=== PATIENT | female | born 1955 | race Caucasian/White ===

== ENCOUNTER → 2017-02-09 | Outpatient (CLI) | payer OTHER ==
[~2017-02-09] MED LIST: ASCO500T3 PO; B-COTAB18 PO; CALCCHW57 PO; CHOL100010 PO; COCO1OIL2 PO; COEN100C11 PO; GLUC1TAB22 PO; LORA-741 PO; MULT-506 PO; OMEGCAP2 PO; THYR90TA PO; VITA400C15 PO; ZINC1TAB PO; ZOLP10TA PO
[2017-02-09 12:24] LABS: BASO % 0.3 %; BASO ABS # 0.02 K/uL (0-0.2); COMPLETE YES; EOS % 3.3 %; HEMATOCRIT 44.1 % (37-47); LYMPH % 34.5 %; MEAN CELL VOLUME 92.6 fL (80-100); MEAN CORPUSCULAR HEMOGLOBIN 30.3 pg (25-34); MEAN CORPUSCULAR HGB CONC 32.7 g/dl (32-36); MEAN PLATELET VOLUME 11.3 fL (7.4-10.4); MONO % 9.3 %; NEUT % 52.6 %; PLATELET COUNT 270 K/uL (130-400); RED BLOOD COUNT 4.76 M/uL (4.2-5.4); WHITE BLOOD COUNT 5.79 K/uL (4.8-10.8)
[2017-02-09 14:40] LABS: ALT/SGPT 25 U/L (12-78); AST/SGOT 16 U/L (15-37); BLOOD UREA NITROGEN 16 mg/dl (7-18); BUN/CREATININE RATIO 19.3 (10-20); CALCIUM 9.4 mg/dl (8.5-10.1); CARBON DIOXIDE 29 mmol/L (21-32); CHLORIDE 107 mmol/L (98-107); CHOLESTEROL 178 mg/dl (0-200); CREATININE 0.81 mg/dl (0.60-1.20); GLUCOSE 84 mg/dl (70-99); POTASSIUM 4.3 mmol/L (3.5-5.1); SODIUM 142 mmol/L (136-145)
[2017-02-09 14:49] LABS: ALB/GLOB RATIO 1.1 (0.9-2); ALKALINE PHOSPHATASE 103 U/L (45-117); CHOLESTEROL/HDL RATIO 2.7; HDL CHOLESTEROL 65 mg/dl; LDL CHOLESTEROL CALCULATED 92 mg/dl; THYROID STIMULATING HORMONE 0.586 uIu/ml (0.300-4.500); TRIGLYCERIDES 105 mg/dl (0-150); VERY LOW DENSITY LIPOPROT CALC 21 mg/dl
== END | disposition home or self-care (01) ==
LOC: C.LABBFT 10:51
PROVIDERS: ATTEND Physician Assistant Medical
DX: E03.9 Hypothyroidism, unspecified (principal); Z13.6 Encounter for screening for cardiovascular disorders; R79.9 Abnormal finding of blood chemistry, unspecified; E78.5 Hyperlipidemia, unspecified

== ENCOUNTER → 2017-07-03 | Outpatient (CLI) | payer OTHER ==
--- NOTE | 2017-07-06 12:34 | MAMMOGRAPHY REPORT ---
BILATERAL DIGITAL SCREENING MAMMOGRAM WITH CAD: 07/03/2017 CLINICAL HISTORY: Routine screening. Patient has no complaints. TECHNIQUE: Current study was also evaluated with a Computer Aided Detection (CAD) system. Bilateral CC and MLO views were obtained. COMPARISON: Comparison is made to exams dated: 07/02/2016 mammogram, 06/07/2013 mammogram, 06/23/2012 ma mmogram, 05/28/2012 mammogram - [facility], 11/19/2007, and 04/22/2007. BREAST COMPOSITION: There are scattered areas of fibroglandular density in both breasts. FINDINGS: No suspicious masses, calcifications, or areas of architectural distortion are noted in ei ther breast. There has been no significant interval change compared to prior exams. IMPRESSION: ACR BI-RADS CATEGORY 1: NEGATIVE There is no mammographic evidence of malignancy. A 1 year screening mammogram is recommended. The pa tient will receive written notification of the results. Approximately 10% of breast cancers are not detected with mammography. A negative mammographic report should not delay biopsy if a clinically suggestive mass is present. Crista Daley M.D. ah/:07/03/2017 15:45:58 [employer]: Glenna Patel RT(R)(M)(BD), [facility] letter sent: Normal 1/2 BI-RADS Code: ACR BI-RADS Category 1: Negative
== END | disposition home or self-care (01) ==
LOC: C.MAMM 15:28
PROVIDERS: ATTEND Internal Medicine
DX: Z12.31 Encounter for screening mammogram for malignant neoplasm of breast (principal)

== ENCOUNTER 2017-10-23 12:24 | Emergency (ER) | payer OTHER ==
[~2017-10-23] VITALS: Ht 167.6 cm; Wt 88.2 kg
[2017-10-23 12:35] VITALS: TEMP 36.6; Ht 167.6 cm; Wt 88.2 kg
[2017-10-23] MEDS ORDERED: ZOLP5TAB6 PO (12:46)
[2017-10-23] MEDS ORDERED: IBUPROFEN 600 MG TAB PO STA (13:23)
--- NOTE | 2017-10-23 13:59 | DIAGNOSTIC IMAGING REPORT ---
R SHOULDER MIN 2 VIEWS ROUTINE CLINICAL HISTORY: Right shoulder pain status post trauma COMPARISON: None. DISCUSSION: No fractures or dislocations are visualized. There are mild degenerative changes present within the AC joint. IMPRESSION: No fractures or dislocations identified. Electronically signed by: Kory Desai M.D. 10/23/2017 1:58 PM Dictated Date/Time: 10/23/2017 1:57 PM
--- NOTE | 2017-10-23 14:09 | DIAGNOSTIC IMAGING REPORT ---
PA CHEST WITH LEFT-SIDED RIB SERIES CLINICAL HISTORY: Fall with left-sided chest wall pain. FINDINGS: A PA chest radiograph with 4 additional views may left-sided rib series is compared to study dated 01/09/2014. The cardiomediastinal silhouette is unremarkable. Chronic interstitial thickening is similar to previous. There is mild bibasilar atelectasis. No airspace consolidation or large pleural effusion is identified. No pneumothorax is seen. The skeletal structures are osteopenic. There is a nondistracted left posterolateral sixth rib fracture. No additional rib fracture is clearly identified on the rib series there is The remainder of the bony thorax is grossly intact. Cholecystectomy clips are noted. IMPRESSION: 1. The lungs are clear noting bibasilar atelectasis. 2. There is a nondistracted left posterior lateral 6th rib fracture seen on the rib series. 3. No additional rib fracture is clearly identified. Electronically signed by: Abhilash Daniels M.D. 10/23/2017 2:08 PM Dictated Date/Time: 10/23/2017 2:05 PM
--- NOTE | 2017-10-23 14:34 | EMERGENCY ROOM VISIT NOTE ---
ED Visit Note First contact with patient: 12:55 CHIEF COMPLAINT: Right shoulder and left rib pain after a fall HISTORY OF PRESENT ILLNESS: Patient is a [id number] 62-year-old white female who presents to the emergency department for evaluation of left rib pain and right shoulder pain. Patient actually suffered 2 falls, first she slipped and fell on ice last evening, landing flat on her back. The second was about an hour and a half ago, when she fell off the side of her basement steps. She reports that she fell roughly 5 feet down to the basement floor, landing on her right shoulder. Initially the right side of her neck and shoulder were stiff and sore, but this has improved slightly. She complains primarily of left lower rib pain. It is worse with any attempts at movement, laughing, deep breathing or coughing. She did not take any medication for discomfort. She rates her pain a 2/10. REVIEW OF SYSTEMS: Review of systems as per HPI. All other systems reviewed were negative. 10 systems reviewed. PMH: Electronic medical records are reviewed and summarized as above/below. See Problem List. SOCIAL HISTORY: Patient lives at home with her spouse. Smoker. PHYSICAL EXAM: Vital Signs: Reviewed Nurse's notes. GENERAL: Patient is an uncomfortable-appearing 62-year-old white female who is standing at the bedside, holding her left ribs. Neck: The neck is supple and there is no pain to palpation over the posterior cervical spine and no obvious step-offs or deformities. There is no JVD or tracheal deviation. Chest: There are no signs of deformities, contusions or abrasions to the anterior chest wall. There is no obvious crepitus or paradoxical chest rise. The left posterior lateral ribs are tender to palpation. There is no obvious flail segment. Heart: Regular rate, and regular rhythm. Lungs: Breath sounds equal and clear to auscultation without wheezes, rales, or rhonchi heard. Abdomen: Soft, completely nontender, nondistended, with good bowel sounds. There is no sign of trauma such as contusions, abrasions or penetrations. There are no palpable pulsatile masses or hepatosplenomegaly. There is no guarding, rigidity, or rebound noted. Extremities: No obvious trauma, deformities, contusions, or edema. There are easily palpable peripheral pulses. The shoulder is nontender to palpation, range of motion is full. She does have some left-sided trapezius and paraspinous muscle tenderness, without spasm. Neuro: The patient is awake and alert and easily able to follow commands. Muscle strength is 5 out of 5 in all 4 extremities. Otherwise, neuro exam is unremarkable. Back: The patient was rolled off the long spine board as a unit. The entire thoracic, lumbar, and sacral spine were palpated. No discomfort over the thoracic spine and lumbar spine. There are no obvious step-offs or deformities noted. There are no obvious signs of trauma such as contusions abrasions penetrations noted to the back. EMERGENCY DEPARTMENT COURSE: The patient was seen and evaluated as above. She was offered medication for discomfort, preferred nonnarcotic medications and was given Tylenol. X-rays of the left ribs with chest were obtained and noted a left sixth rib fracture. Right shoulder x-rays were obtained and were unremarkable. X-ray findings were reviewed with the patient. Supportive care measures were discussed. She was issued an incentive spirometer. She was prescribed Tumtum for pain. Differential diagnosis includes rib fracture, pneumothorax, pulmonary contusion, shoulder contusion, shoulder dislocation, clavicle fracture, AC separation among others. Medication reconciliation: I attest that I have personally reviewed the patient' s current medication list. Blood pressure screening : Patient was found to have normal blood pressure on screening and does not require follow-up. Patient was reviewed in the [facility] Prescription Drug Monitoring Program, and there were no red flags noted. PA CHEST WITH LEFT-SIDED RIB SERIES CLINICAL HISTORY: Fall with left-sided chest wall pain. FINDINGS: A PA chest radiograph with 4 additional views may left-sided rib series is compared to study dated 01/09/2014. The cardiomediastinal silhouette is unremarkable. Chronic interstitial thickening is similar to previous. There is mild bibasilar atelectasis. No airspace consolidation or large pleural effusion is identified. No pneumothorax is seen. The skeletal structures are osteopenic. There is a nondistracted left posterolateral sixth rib fracture. No additional rib fracture is clearly identified on the rib series there is The remainder of the bony thorax is grossly intact. Cholecystectomy clips are noted. IMPRESSION: 1. The lungs are clear noting bibasilar atelectasis. 2. There is a nondistracted left posterior lateral 6th rib fracture seen on the rib series. 3. No additional rib fracture is clearly identified. R SHOULDER MIN 2 VIEWS ROUTINE CLINICAL HISTORY: Right shoulder pain status post trauma COMPARISON: None. DISCUSSION: No fractures or dislocations are visualized. There are mild degenerative changes present within the AC joint. IMPRESSION: No fractures or dislocations identified. Problem List Medical Problems: (1) Abdominal pain Status: Resolved (2) Abdominal pain Status: Resolved (3) Cholelithiasis Status: Resolved (4) Hypothyroidism Status: Chronic Surgical Problems: (1) History of cholecystectomy Status: Resolved Current/Historical Medications Scheduled Ascorbic Acid (Vitamin C), 500 MG PO DAILY B-Complex Vitamins (Vitamin B Complex), 1 TAB PO DAILY Calcium Carbonate-Vitamin D W/ (Calcium 1200), 1 TAB PO DAILY Coenzyme Q10 (Ubidecarenone) (Coq-10), 100 MG PO DAILY Glucosamine Hydrochloride (Glucosamine), 1,500 PO DAILY Lorazepam (Ativan), 0.5 MG PO PRN Multivitamin (Multivitamin), 1 TAB PO DAILY [place]-3 Fatty Acids (Fish Oil), 1 CAP PO DAILY Thyroid ([place] Thyroid), 90 MG PO DAILY Zinc Gluconate (Zinc), 50 MG PO DAILY Zolpidem Tartrate (Zolpidem Tartrate), 5 MG PO HS Scheduled PRN Hydrocodone/Acetaminophen 5MG/325MG (Tumtum 5MG/325MG), 1-2 TABLETS PO Q4 PRN for Pain Allergies Coded Allergies: Prednisone (Verified Allergy, Severe, ANAPHYLAXIS, 01/16/14) Sulfa Drugs (Verified Allergy, Intermediate, RASH, 01/16/14) Oxybenzone (Verified Allergy, Unknown, SUNSCREEN = RASH, 01/16/14) Padimate O (Verified Allergy, Unknown, SUNSCREEN = RASH, 01/16/14) Erythromycin (Verified Adverse Reaction, Intermediate, WORSENING INFECTION , 01/16/14) Penicillins (Verified Adverse Reaction, Intermediate, HAND AND FEET PAIN, 01/16/14) Vital Signs Date Time Temp Pulse Resp B/P (MAP) Pulse Ox O2 Delivery O2 Flow Rate FiO2 10/23/17 15:00 69 16 105/67 98 10/23/17 12:35 36.6 70 18 120/78 95 Room Air Medications Administered Medications (Trade) Dose Ordered Sig/Annette Route Start Time Stop Time Status Last Admin Dose Admin Ibuprofen (Motrin Tab) 600 mg NOW STAT PO 10/23/17 13:23 10/23/17 13:24 DC 10/23/17 13:35 600 MG Departure Information Impression Primary Impression: Left rib fracture Additional Impression: Contusion of right shoulder Prescriptions Hydrocodone/Acetaminophen 5MG/325MG (Tumtum 5MG/325MG) Tab 1-2 TABLETS PO Q4 Y for Pain, #30 TAB For Initial Treatment Prov: Ethel Calhoun PA 10/23/17 Referrals Alfredo Castillo M.D. (PCP) Patient Instructions [facility] Additional Instructions Hydrocodone/Acetaminophen (Tumtum) 5/325 mg: Take 1-2 pills every four hours for breakthrough pain. Avoid alcohol, operating machinery or dangerous equipment, working on ladders or roofs, DRIVING, or situations where being under the influence may be dangerous. It is recommended to use an hsel-cqe-hxkykvj stool softener such as Colace, 100mg twice daily while taking this medication to avoid constipation. Apply ice to ribs for swelling and pain. Do deep breathing/incentive spirometer as instructed. Limit activities until ribs heal. Ibuprofen(Motrin, Advil) may be used for fever or pain. Use 600mg every six hours as needed. Take with food. Avoid using more than 2400mg in a 24 hour period. Do not use 2400mg per day for more than three consecutive days without physician direction. Prolonged inappropriate use can lead to stomach upset or ulcers. (AND/OR) Acetaminophen(Tylenol) may be used for fever or pain. Use 1000mg every six hours as needed. Avoid using more than 3000mg in a 24 hour period. Return to the emergency department for worsening pain, shortness of breath, fevers, coughing up blood, worsening symptoms or as needed. Follow-up family doctor as needed. Problem Qualifiers
[2017-10-23] MEDS ORDERED: HYDR-5688 PO (14:41)
[2017-10-23 15:00] VITALS: BP 105/67; PULSE 69; O2SAT 98
== END 2017-10-23 15:11 | disposition home or self-care (01) ==
LOC: C.EDB 12:26 → C.EDD 15:11
DX: S22.32XA Fracture of one rib, left side, initial encounter for closed fracture (principal); W00.0XXA Fall on same level due to ice and snow, initial encounter; S40.011A Contusion of right shoulder, initial encounter; W17.89XA Other fall from one level to another, initial encounter; Y92.018 Other place in single-family (private) house as the place of occurrence of the external cause; E03.9 Hypothyroidism, unspecified; F17.210 Nicotine dependence, cigarettes, uncomplicated; Z79.899 Other long term (current) drug therapy